=== PATIENT | female | born 1990 | race Caucasian/White ===

== ENCOUNTER 2017-04-08 06:08 | Day surgery (SDC) | payer OTHER ==
[2017-04-02 08:25] LABS: A/G RATIO 1.4 (0.7-1.9); ALBUMIN 4.2 G/DL (3.5-5.0); ALKALINE PHOSPHATASE 78 U/L (45-117); BUN (BLOOD UREA NITROGEN) 15 MG/DL (6-23); CALCIUM, SERUM 8.9 MG/DL (8.5-10.4); CHLORIDE, SERUM 106 MMOL/L (96-112); CO2 (CARBON DIOXIDE) 32 MMOL/L (24-34); CREATININE 0.98 MG/DL (0.55-1.02); GFR AFRICAN AMERICAN 92 ML/MIN (>=60); GFR NON AFRICAN AMERICAN 79 ML/MIN (>=60); POTASSIUM, SERUM 4.2 MMOL/L (3.5-5.3); SGOT(AST) 26 U/L (5-40); SGPT(ALT) 50 U/L (5-65); SODIUM, SERUM 141 MMOL/L (135-148); TOTAL BILIRUBIN 0.9 MG/DL (0-1.2); TOTAL PROTEIN 7.2 G/DL (6.0-8.5)
[2017-04-02 08:26] LABS: GLUCOSE, SERUM 106 MG/DL (60-99)
--- NOTE | ~2017-04-08 | OP ---
[facility] Of [facility] [address] [place]. [address] NAME: TERE MÉNDEZ : 88 STATUS : [facility]#: [id number] AGE: 26 ADM/REG DATE : 04/08/17 MR#: [id number] REPORT SERV DATE: 04/09/17 DICTATED BY: TWIN BERNABE DATE: 04/09/17 REPORT STATUS : Draft TRANSCRIBED BY: MODL DATE: 04/09/17 DATE OF PROCEDURE: 04/08/2017 PREOPERATIVE DIAGNOSIS: Biliary dyskinesia. POSTOPERATIVE DIAGNOSES: 1. Biliary dyskinesia. 2. Chronic cholecystitis. PROCEDURE: Laparoscopic cholecystectomy. RESIDENT: Hipolito Chen M.D. ANESTHESIA: General. ESTIMATED BLOOD LOSS: 10 mL. IV FLUIDS: Approximately 1000 mL of crystalloid. SPECIMEN: Gallbladder. DRAINS: None. COMPLICATIONS: None. FINDINGS: The patient had a gallbladder with omental adhesions and a thickened peritoneum consistent with chronic cholecystitis. INDICATIONS FOR PROCEDURE: This is a 26-year-old female with symptomatic postprandial nausea and right upper quadrant abdominal pain. The patient was worked up and was found to have a decreased ejection fraction consistent with biliary dyskinesia. The above procedure was offered to the patient. Risks, benefits, and alternatives were explained. The patient expressed clear verbal understanding and wished to proceed forward with this elective procedure. DESCRIPTION OF PROCEDURE: After informed consent was obtained, the patient was taken back to the operative theater. The patient was laid on the operating room table in the supine position. The patient was given adequate analgesia and anesthesia and then successfully endotracheally intubated. The surgery site was then prepped and draped in standard fashion. A formal time-out was then performed. Appropriate preoperative antibiotics had been administered. All present in the operating room were in agreement and we elected to proceed forward with the procedure. We began by making an umbilical incision and dissected down to the anterior abdominal fascia, which was grasped, elevated, and incised. Blunt dissection was used to gain entrance into the abdominal cavity. The origin trocar was then placed into the abdominal cavity and insufflated and secured in position. The trocar was then connected for insufflation of the pneumoperitoneum of 15 mmHg was achieved and the patient tolerated [facility] [address] [facility] [place]. [address] NAME: TERE MÉNDEZ : 88 STATUS : [facility] PAT#: [id number] AGE: 26 ADM/REG DATE : 04/08/17 MR#: [id number] REPORT SERV DATE: 04/09/17 DICTATED BY: TWIN BERNABE DATE: 04/09/17 REPORT STATUS : Draft TRANSCRIBED BY: MODL DATE: 04/09/17 this well. A laparoscope was introduced into the abdominal cavity. A quick surveillance revealed no blood and no bile. No injury to the omentum, small bowel, or mesentery. The liver appeared healthy. No nodules seen noncirrhotic. We then placed a 12 mm trocar in the epigastrium and then two 5 mm trocars in the right upper quadrant. The gallbladder was then grasped and retracted cephalic. A combination of electrocautery and blunt dissection was then used to take down omental adhesions that were appeared to be a thickened peritoneum on the gallbladder consistent with chronic cholecystitis. We then circumferentially dissected out the cystic duct and cystic artery. Once the critical view of the cyst duct and gallbladder infundibular junction was identified as well as cystic artery circumferentially dissected with the liver plate easily seen behind it, we then placed two clips on the stay side and one clip on the go side on each cystic duct and cystic artery and then sharply transected between these clips. The gallbladder was then removed from the liver bed with electrocautery and placed into an Endobag and removed from the abdominal cavity and passed off the surgical field. The gallbladder fossa was then visualized and hemostasis was noted to have been achieved. No bile leak was noted. The right upper quadrant was thoroughly irrigated out with saline solution to a clear fluid return. We then removed all trocars under direct laparoscopic vision. No bleeding noted from the anterior abdominal wall. We then removed our final trocar and laparoscope and desufflated the patient's abdomen adequately. We then used 0 Vicryl on a UR6 in a [id number] fashion, reapproximated the fascia at the umbilicus, and then placed one more simple interrupted stitch for complete closure of the fascia at the umbilicus. We then at this time reapproximated all skin incisions with 4-0 Monocryl in a simple interrupted subcuticular stitch fashion. Skin edges were reapproximated very well. Hemostasis was noted to have been achieved. Sterile dressings were then applied. Sterile drapes were then broken down. The patient reversed from anesthesia and successfully extubated in the operating room. The patient is awake. Vital signs were stable. The patient is transferred to recovery in stable condition. DICTATED BY: MD CHICO Gary/KELLY Twin Bernabe M.D. / [id number] CC: Twin Bernabe M.D. NO PCP
[~2017-04-08 06:08] MED LIST: PRILOSEC40 MG PO; RANITIDINE300 MG PO
[2017-04-09] MEDS ORDERED: MYTAB GAS125 MG PO (00:29)
[2017-04-09] MEDS ORDERED: PRILOSEC40 MG PO (00:29)
[2017-04-09] MEDS ORDERED: NORCO1 TA2 PO (00:29)
[2017-04-09] MEDS ORDERED: ZANTAC300 MG PO (00:30)
[2017-04-09] MEDS ORDERED: MIRALAX POWDER1 PKT PO (00:31)
== END 2017-04-08 16:14 | disposition home or self-care (01) ==
LOC: SDC 06:08
PROVIDERS: Specialist
PROC: 0FT44ZZ Resection of Gallbladder, Percutaneous Endoscopic Approach (ICD-10-PCS; principal; 2017-04-08 07:45)
DX: K81.1 Chronic cholecystitis (principal); K82.8 Other specified diseases of gallbladder; K21.9 Gastro-esophageal reflux disease without esophagitis; K44.9 Diaphragmatic hernia without obstruction or gangrene; M19.90 Unspecified osteoarthritis, unspecified site; F32.9 Major depressive disorder, single episode, unspecified; E66.9 Obesity, unspecified; Z68.35 Body mass index [BMI] 35.0-35.9, adult; Z79.899 Other long term (current) drug therapy; Z98.890 Other specified postprocedural states
CPT/HCPCS: 80053; 84703; 88304; A9270-GY; J0330; J0690; J1885; J2250; J2405; J2550; J2710; J3010; Q9967

== ENCOUNTER 2017-04-08 20:21 | Observation (INO) | payer OTHER ==
--- NOTE | ~2017-04-08 | OP ---
Record Of [facility] [place] [id number] [facility] [place]. [address] NAME: TERE MÉNDEZ : 88 STATUS : ADM Antony PAT#: [id number] AGE: 26 ADM/REG DATE : 04/08/17 MR#: [id number] REPORT SERV DATE: 04/10/17 DICTATED BY: TWIN BERNABE DATE: 04/09/17 REPORT STATUS : Draft TRANSCRIBED BY: MODL DATE: 04/09/17 DATE OF PROCEDURE: 04/09/2017 DICTATED BY: Hipolito Chen MD. PREOPERATIVE DIAGNOSIS: Hemoperitoneum. POSTOPERATIVE DIAGNOSIS: Hemoperitoneum. PROCEDURE: 1. Diagnostic laparoscopy. 2. Evacuation of hemoperitoneum. ATTENDING SURGEON: Twin Bernabe MD RESIDENT: Hipolito Chen MD ANESTHESIA: General. ESTIMATED BLOOD LOSS: Less than 5 mL. IV FLUID: 850 mL crystalloid. SPECIMEN: None. DRAINS: 15-Kittitian Bishop drain placed in for infrahepatically near the gallbladder fossa. COMPLICATIONS: None. FINDINGS: The patient has a large amount of hemoperitoneum. Clips were visualized on the cystic artery and were secure. There was no bleeding noted from the cystic artery. There was no active bleeding coming from any of the four trocar sites from looking intra- abdominally. The epigastric trocar site, once the stitches were opened, did have a skin bleeder that was just over the subcutaneous tissue just below the dermis. Thus actively bleeding was easily able to be controlled with electrocautery. There was a hematoma that was noted at the umbilical trocar site, is visualized intraabdominally. INDICATIONS FOR PROCEDURE: This is a 26-year-old female, who is postoperative day 1 from laparoscopic cholecystectomy. The patient represented with continuous abdominal pain that could not be managed with oral narcotics had been prescribed. Postoperatively, the patient underwent a CAT scan, it was noted the patient had hemoperitoneum, proximal volume measurement was at 250 mL. Therefore, the above procedure was offered to the patient. Risks, benefits, alternatives were explained. The patient expressed clear verbal understanding, wished to proceed forward with the procedure. DESCRIPTION OF PROCEDURE: After informed consent was obtained, the patient was taken back to Record Of [place] [id number] [facility] [place]. [address] NAME: TERE MÉNDEZ : 88 STATUS : ADM Antony PAT#: [id number] AGE: 26 ADM/REG DATE : 04/08/17 MR#: [id number] REPORT SERV DATE: 04/10/17 DICTATED BY: TWIN BERANBE DATE: 04/09/17 REPORT STATUS : Draft TRANSCRIBED BY: KELLY DATE: 04/09/17 the operative theater. The patient was laid on the operating room table in supine position. The patient was given adequate analgesia and anesthesia and then successfully endotracheally intubated. The surgery site was then prepped and draped in a standard fashion. A formal time-out was then performed. All present in the operating room were in agreement and we elected to proceed for the procedure. We began by reopening the umbilical incision bluntly dissecting down, grasped our fascia closure stitch, sharply excised it. We bluntly dissected, regain entrance into the abdominal cavity. A 12 mm origin trocar was then placed into the abdomen. Anchoring balloon was insufflated. Trocar was then connected to insufflation and pneumoperitoneum at 15 mmHg was achieved. The patient tolerated this well. Laparoscope was introduced into the abdominal cavity, revealed large amount of blood clot paraumbilically, intra-abdominally, but no active bleeding could be seen. Then there was an old blood noted upon the liver and around the right paracolic gutter. We then visualized our four more trocar sites, dropped the insufflation down to 8. There was no bleeding noted from the anterior abdominal wall or epigastric or to right upper quadrant trocar sites and inflated both up to 50 mmHg. Opened up our incision at the epigastric trocar site, went to place a 10 mm trocar. This trocar site noted that there was an active skin bleeder that was in the subcutaneous tissue deep to the dermis. This is able to be controlled with electrocautery. We then placed a 10 mm trocar through the epigastric site as well as two 5 mm trocars through our previous right upper quadrant incision sites. I then thoroughly irrigated out the abdomen and evacuated all the hemoperitoneum, all the clot was grasped and removed from the abdominal cavity as well. We thoroughly irrigated out the right upper quadrant, right pericolic gutter, and the pelvis. This was done twice with placing the patient in reverse Trendelenburg and Trendelenburg to make sure we had adequate evacuation of the abdominal cavity of any old blood or clot. We then reviewed the gallbladder fossa. The gallbladder fossa was dry. Hemostasis was achieved there. Clips could be seen in cystic artery and they were secured and in position, and there was no bleeding noted from the cystic artery. So the time we placed a 15-Kittitian Bishop drain infrahepatically in the gallbladder fossa and pulled out through the lateral most right upper quadrant trocar site and secured in position with 2-0 nylon stitch. We then removed all the other trocars under direct laparoscopic vision. Again, no bleeding noted from the anterior abdominal wall. We then removed our final trocar and desufflated the anchoring balloon over the trocar, removed it from the abdominal cavity. We then elongated her umbilical incision to get better visualization of the fascia. There was a hematoma that was between the peritoneum and the fascia. This was evacuated. Of note, prior to placing the 15-Kittitian Ibshop drain infrahepatically in gallbladder fossa, we squirted Renata. Renata was applied to the gallbladder fossa and onto the cystic artery clips as well as into both right upper quadrant trocar sites. So after elongating our incision inferiorly on the umbilical trocar site to get better exposure of our fascia, it was noted that there was hematoma between the fascia and the peritoneum at the umbilical trocar site. We evacuated this hematoma. There was no active bleeder noted in this area. Renata was applied in the space between the peritoneum and the fascia at this location. We then reapproximated the fascia with 0 Vicryl on UR-6 under simple running fashion. The fascia was reapproximated very well. Hemostasis was noted to be achieved. Thoroughly irrigated out all our trocar sites, saline solution, then reapproximated all skin incisions for the epigastric and 2 right upper quadrant with a simple interrupted subcuticular stitch fashion, reapproximated the umbilical trocar site with a simple running subcuticular stitch fashion. Skin edges were all reapproximated very well. Hemostasis was achieved. A sterile dressing was applied. Sterile drapes were then Record Of Operation [place] [id number] [facility] [place]. [address] NAME: ETRE MÉNDEZ : 88 STATUS : ADM Antony [facility]#: [id number] AGE: 26 ADM/REG DATE : 04/08/17 MR#: [id number] REPORT SERV DATE: 04/10/17 DICTATED BY: TWIN BERNABE DATE: 04/09/17 REPORT STATUS : Draft TRANSCRIBED BY: MODL DATE: 04/09/17 broken down. The patient was reversed from anesthesia and successfully extubated. The patient was awake and vital signs were stable. The patient was transferred to recovery in stable condition. ROMAN/KELLY Twin Bernabe M.D. / [id number] CC: Twin Bernabe M.D.
--- NOTE | ~2017-04-08 | HP ---
History And Physical [facility] [address] [facility] [place]. [address] NAME: TERE MÉNDEZ : 88 STATUS : ADM Antony PAT#: [id number] AGE: 26 ADM/REG DATE : 04/08/17 MR#: [id number] REPORT SERV DATE: 04/09/17 DICTATED BY: TWIN SCOTT DATE: 04/09/17 REPORT STATUS : Draft TRANSCRIBED BY: MODMelissa DATE: 04/09/17 DATE OF ADMISSION: 04/08/2017 CHIEF COMPLAINT: Abdominal pain. HISTORY OF PRESENT ILLNESS: This is a 26-year-old female, who is postoperative day 1 from laparoscopic cholecystectomy for biliary dyskinesia and signs of chronic cholecystitis as well. She now represents with intractable abdominal pain and workup performed in the ER. The labs and CT scan shows hemoperitoneum and a drop of hematocrit from 32.6 to 26.8. The patient complains diffuse abdominal soreness, worse with palpation and movement, better with lying still. She also has been having considerable amount of drainage from the epigastric trocar site. Bandage has been changed repeatedly. The patient denies any fever, chills, nausea, or vomiting. She denies any lightheadedness, dizziness, or blurry vision. No new paresthesias. Denies any shortness of breath or chest pain. REVIEW OF SYSTEMS: 12-systems reviewed and negative except as mentioned in HPI. ALLERGIES: NO KNOWN DRUG ALLERGIES. PAST MEDICAL HISTORY: Morbid obesity, GERD, and biliary dyskinesia. PAST SURGICAL HISTORY: Postoperative day 1 from a laparoscopic cholecystectomy. SOCIAL HISTORY: No tobacco, alcohol, or drugs. Lives in [place], [place] with her family. FAMILY HISTORY: Her paternal grandfather and grandmother had lung cancer and her paternal aunt had colon cancer. MEDICATIONS: Omeprazole and ranitidine. PHYSICAL EXAMINATION: VITAL SIGNS: Temperature 98.5, blood pressure 103/55, pulse 74, respiratory rate 20, and O2 sats 96% on room. GENERAL: Well developed, well nourished, no acute distress, white female, morbid obesity, who is sleeping. HEENT: Normocephalic and atraumatic. PERRLA. EOMI. Mucous membranes are moist. NECK: No lymphadenopathy. Trachea midline. CARDIOVASCULAR: Regular rate and rhythm. LUNGS: Clear to auscultation. ABDOMEN: Soft and nondistended. Appropriately tender to palpation. No rebound. No guarding. No peritonitis. Incision sites, the epigastric incision has a continuous sanguinous slow drainage. The umbilical dressing was removed and had some old blood, which was cleaned out. This incision as well has a slow continuous sanguinous drainage but less compared to the epigastric site. The two right upper quadrant trocar sites skin is History And Physical [address] [address] NAME: TERE MÉNDEZ : 88 STATUS : ADM Antony PAT#: [id number] AGE: 26 ADM/REG DATE : 04/08/17 MR#: [id number] REPORT SERV DATE: 04/09/17 DICTATED BY: TWIN SCOTT DATE: 04/09/17 REPORT STATUS : Draft TRANSCRIBED BY: KELLY DATE: 04/09/17 reapproximated very well. Hemostasis achieved, and dry. EXTREMITIES: No clubbing, cyanosis, edema. 2+ pulses. MUSCULOSKELETAL: Moves all extremities well. NEUROLOGIC: Cranial 2 through 12 are intact. AO x3. LABS: White blood cell count 9.8, hematocrit 26.8, which is down from 32.6, platelets of 314. Urinalysis is contaminated as evidenced by the epithelials being 105. test is negative. Sodium 137, potassium 4.2, chloride 104, bicarb 27, BUN 15, creatinine 1.19, glucose 136, calcium 9.0, albumin 4.4. ALT 121, AST 97, lipase 81. T bilirubin is 0.7. CT scan shows hemoperitoneum approximately 250 mL of volume by estimate. ASSESSMENT AND PLAN: This is a 26-year-old female with abdominal pain and hemoperitoneum. The patient is currently afebrile. Vital signs stable. But secondary to the patient's complaints of abdominal pain requiring IV narcotics and the volume of hemoperitoneum, we will take the patient back to the operating room for diagnostic laparoscopy with washout and control the source of bleeding. DICTATED BY: MD CHICO Gary/KELLY Twin Scott M.D. / [id number] CC: Twin Scott M.D.
[2017-04-08 21:03] LABS: BASOPHILS 0.1 %; BASOPHILS ABSOLUTE 0.01 10/3/uL (0.0-0.16); EOSINOPHILS 0 %; HEMATOCRIT 32.6 % (36.0-48.0); HEMOGLOBIN 11.1 g/dL (12.0-16.0); IMMATURE GRANULOCYTES 0.3 %; IMMATURE GRANULOCYTES ABSOLUTE 0.06 10/3/uL (0.0-0.11); LYMPHOCYTES 6.5 %; LYMPHOCYTES ABSOLUTE 1.25 10/3/uL (0.67-4.30); MEAN CORPUSCULAR HEMOGLOB 28.8 pg (26.0-34.0); MEAN CORPUSCULAR VOLUME 84.7 fL (80-100); MEAN PLATELET VOLUME 10.3 fL (9.2-13.0); MONOCYTES 6.2 %; NEUTROPHILS 86.9 %; NEUTROPHILS ABSOLUTE 16.71 10/3/uL (2.02-8.40); RED CELL COUNT 3.85 10/6/uL (4.0-5.6)
[2017-04-08 21:04] LABS: ER CBC TAT 0 Hrs 08 Mins; MANUAL DIFF NO %; PLATELET COUNT 469 10/3/uL (150-400); WHITE BLOOD CELLS 19.2 10/3/uL (4.5-10.5)
[2017-04-08 21:36] LABS: A/G RATIO 1.3 (0.7-1.9); ALBUMIN 4.4 G/DL (3.5-5.0); ALKALINE PHOSPHATASE 79 U/L (45-117); BUN (BLOOD UREA NITROGEN) 15 MG/DL (6-23); CHLORIDE, SERUM 104 MMOL/L (96-112); CREATININE 1.19 MG/DL (0.55-1.02); GFR AFRICAN AMERICAN 72 ML/MIN (>=60); GFR NON AFRICAN AMERICAN 63 ML/MIN (>=60); GLOBULIN 3.4 G/DL (2.5-4.1); POTASSIUM, SERUM 4.2 MMOL/L (3.5-5.3); SGOT(AST) 97 U/L (5-40); SGPT(ALT) 121 U/L (5-65); SODIUM, SERUM 137 MMOL/L (135-148); TOTAL BILIRUBIN 0.7 MG/DL (0-1.2); TOTAL PROTEIN 7.8 G/DL (6.0-8.5)
[2017-04-08 21:37] LABS: CO2 (CARBON DIOXIDE) 27 MMOL/L (24-34); GLUCOSE, SERUM 136 MG/DL (60-99)
[2017-04-08 22:00] LABS: ASCORBIC ACID (UR NOT ORDER) NEG (NEG); BILIRUBIN, URINE NEGATIVE (NEG); ER URINALYSIS TAT 0 Hrs 12 Mins; KETONE, URINE NEGATIVE (NEG); LEUKOCYTE ESTERASE(NOT OR LARGE (NEG); NITRITE (URINE) NEG (NEG); WBC (NOT ORDERED) (RFLEX) 84 (0-5)
[2017-04-09] MEDS ORDERED: PRILOSEC40 MG PO (00:29)
[2017-04-09] MEDS ORDERED: MYTAB GAS125 MG PO (00:29)
[2017-04-09] MEDS ORDERED: NORCO1 TA2 PO (00:29)
[2017-04-09] MEDS ORDERED: ZANTAC300 MG PO (00:30)
[2017-04-09] MEDS ORDERED: MIRALAX POWDER1 PKT PO (00:31)
[2017-04-09 04:52] LABS: BASOPHILS 0.1 %; BASOPHILS ABSOLUTE 0.01 10/3/uL (0.0-0.16); EOSINOPHILS 0 %; IMMATURE GRANULOCYTES 0.3 %; IMMATURE GRANULOCYTES ABSOLUTE 0.03 10/3/uL (0.0-0.11); LYMPHOCYTES 14.9 %; LYMPHOCYTES ABSOLUTE 1.45 10/3/uL (0.67-4.30); MEAN CORPUS HGB CONC 33.6 g/dL (32.0-36.0); MEAN CORPUSCULAR HEMOGLOB 28.8 pg (26.0-34.0); MEAN CORPUSCULAR VOLUME 85.6 fL (80-100); MEAN PLATELET VOLUME 10.3 fL (9.2-13.0); MONOCYTES 9.8 %; MONOCYTES ABSOLUTE 0.96 10/3/uL (0.21-1.20); NEUTROPHILS 74.9 %; RBC DISTRIBUTION WIDTH 12.9 % (12.0-16.0); RED CELL COUNT 3.13 10/6/uL (4.0-5.6)
[2017-04-09 04:55] LABS: HEMATOCRIT 26.8 % (36.0-48.0); MANUAL DIFF NO %; PLATELET COUNT 314 10/3/uL (150-400); WHITE BLOOD CELLS 9.8 10/3/uL (4.5-10.5)
[2017-04-09 11:07] LABS: INTERNATIONAL NORMAL RATI 1.1 UNITS (-); PARTIAL THROMBO TIME 26.8 SEC (22.5-37.2); PROTIME (NOT ORD) 14.5 SEC (12.0-14.5)
[2017-04-10 05:58] LABS: HEMATOCRIT 26.9 % (36.0-48.0); HEMOGLOBIN 8.8 g/dL (12.0-16.0)
[2017-04-10 06:16] LABS: CALCIUM, SERUM 8.3 MG/DL (8.5-10.4); CHLORIDE, SERUM 105 MMOL/L (96-112); CREATININE 0.98 MG/DL (0.55-1.02); GFR AFRICAN AMERICAN 92 ML/MIN (>=60); GFR NON AFRICAN AMERICAN 79 ML/MIN (>=60); POTASSIUM, SERUM 3.5 MMOL/L (3.5-5.3); SODIUM, SERUM 142 MMOL/L (135-148)
[2017-04-10 06:17] LABS: BUN (BLOOD UREA NITROGEN) 8 MG/DL (6-23); CO2 (CARBON DIOXIDE) 32 MMOL/L (24-34); GLUCOSE, SERUM 104 MG/DL (60-99)
== END 2017-04-10 13:49 | disposition home or self-care (01) ==
LOC: ER 20:21 → 4SO 21:21
PROVIDERS: Emergency Medicine; Specialist
PROC: 0FT44ZZ Resection of Gallbladder, Percutaneous Endoscopic Approach (ICD-10-PCS; 2017-04-08)
PROC: 0WJG4ZZ Inspection of Peritoneal Cavity, Percutaneous Endoscopic Approach (ICD-10-PCS; 2017-04-09)
PROC: 0WJP4ZZ Inspection of Gastrointestinal Tract, Percutaneous Endoscopic Approach (ICD-10-PCS; principal; 2017-04-09 08:15)
DX: K66.1 Hemoperitoneum (principal); K21.9 Gastro-esophageal reflux disease without esophagitis; E66.01 Morbid (severe) obesity due to excess calories; K82.8 Other specified diseases of gallbladder; M19.90 Unspecified osteoarthritis, unspecified site; F32.9 Major depressive disorder, single episode, unspecified; K44.9 Diaphragmatic hernia without obstruction or gangrene; Z90.49 Acquired absence of other specified parts of digestive tract
CPT/HCPCS: 36415; 74177; 80048; 80053; 81001; 83690; 84703; 85014; 85018; 85025; 85049; 85610; 85730; 86850; 86900; 86901; 87086; 88304; 96374; 96375; 96376; 99285; A9270-GY; G0378; J0330; J0690; J1170; J1885; J2250; J2270; J2405; J2550; J2710; J3010; Q9967

== ENCOUNTER 2017-04-14 13:10 | Inpatient (IN) | payer OTHER ==
--- NOTE | ~2017-04-14 | HP ---
History And Physical [place] [id number] [facility] [place]. [address] NAME: TERE MÉNDEZ : 88 STATUS : ADM IN [facility]#: [id number] AGE: 26 ADM/REG DATE : 04/14/17 MR#: [id number] REPORT SERV DATE: 04/14/17 DICTATED BY: TWIN SCOTT DATE: 04/14/17 REPORT STATUS : Draft TRANSCRIBED BY: MODMelissa DATE: 04/14/17 DATE OF ADMISSION: 04/14/2017 CHIEF COMPLAINT: Fever, chills, nausea. HISTORY OF PRESENT ILLNESS: This is a 26-year-old female, who on 04/08/2017, had a laparoscopic cholecystectomy, subsequently was readmitted and diagnostic laparoscopy was performed on the following day for hemoperitoneum and was found to have bleeding most probably from the umbilical trocar site. See op notes for full details. The patient was discharged to home. The patient had re-presented to the office with nonspecific symptoms of fever, chills, nausea, early satiety, orthopnea, and generalized aches and pains of the bilateral upper extremities and lower extremities. The patient denies any sick contacts. Denies any travel. The patient does state that she is tolerating oral intake. She is having normal bowel movements and has pain with no specific dysuria, but does have suprapubic pain with voiding. REVIEW OF SYSTEMS: 12-systems reviewed and negative except as mentioned in the HPI. ALLERGIES: NO KNOWN DRUG ALLERGIES. PAST MEDICAL HISTORY: Morbid obesity, GERD, and biliary dyskinesia. PAST SURGICAL HISTORY: Laparoscopic cholecystectomy and diagnostic laparoscopy with hemoperitoneum evacuation. SOCIAL HISTORY: No tobacco, alcohol, or drugs. Lives in [place], [place] with her family. FAMILY HISTORY: Paternal grandfather and grandmother with lung cancer. Paternal aunt with colon cancer. MEDICATIONS: Omeprazole, ranitidine. PHYSICAL EXAMINATION: VITAL SIGNS: Blood pressure 125/57, pulse 68, oxygen 98% on room air, respiratory rate 22, temperature 98.0. GENERAL: This is a well-developed, well-nourished, no acute distress female. HEENT: Normocephalic, atraumatic. PERRLA, EOMI. Mucous membranes are moist. Sclerae nonicteric. NECK: No lymphadenopathy. Trachea midline. CARDIOVASCULAR: Regular rate and rhythm. LUNGS: Clear to auscultation bilaterally. ABDOMEN: Soft, nondistended, tender to palpation in the right upper quadrant, mostly near the drain. The patient had a Bishop drain present, active bulb suction. Fluid in the line appears to be serous, but in the bulb appears to be serosanguineous, slightly ecchymotic History And Physical [address] [address] NAME: TERE MÉNDEZ : 88 STATUS : ADM IN [facility]#: [id number] AGE: 26 ADM/REG DATE : 04/14/17 MR#: [id number] REPORT SERV DATE: 04/14/17 DICTATED BY: TWIN SCOTT DATE: 04/14/17 REPORT STATUS : Draft TRANSCRIBED BY: KELLY DATE: 04/14/17 periumbilically as well as epigastric. Incision sites healed well. No rebound or guarding. No peritonitis noted. EXTREMITIES: No clubbing, cyanosis, edema. 2+ pulses. MUSCULOSKELETAL: Moves all extremities well. NEURO: Cranial nerves 2 through 12 are intact. A and O x3. LABORATORY DATA: Labs are pending. CT scan pending. ASSESSMENT AND PLAN: This is a 26-year-old female, who is status post laparoscopic cholecystectomy and diagnostic lap with hemoperitoneum evacuation, who presents with nonspecific symptoms. The patient will be admitted, started on some IV antibiotics. We will obtain labs such as CBC, CMP, amylase, lipase, urinalysis. A CAT scan also be obtained to evaluate for any abscess. DICTATED BY: MD CHICO Gary/KELLY Twin Scott M.D. / [id number] CC: Twin Scott M.D.
[~2017-04-14 13:10] MED LIST changes: +MIRALAX POWDER1 PKT PO; +MYTAB GAS125 MG PO; +NORCO1 TA2 PO; +ZANTAC300 MG PO
[2017-04-14 14:30] LABS: BASOPHILS 0.1 %; BASOPHILS ABSOLUTE 0.01 10/3/uL (0.0-0.16); EOSINOPHILS 1.3 %; EOSINOPHILS ABSOLUTE 0.12 10/3/uL (0.0-0.53); HEMATOCRIT 29.8 % (36.0-48.0); HEMOGLOBIN 9.8 g/dL (12.0-16.0); IMMATURE GRANULOCYTES 0.6 %; IMMATURE GRANULOCYTES ABSOLUTE 0.05 10/3/uL (0.0-0.11); LYMPHOCYTES ABSOLUTE 1.71 10/3/uL (0.67-4.30); MANUAL DIFF NO %; MEAN CORPUS HGB CONC 32.9 g/dL (32.0-36.0); MEAN CORPUSCULAR HEMOGLOB 28.4 pg (26.0-34.0); MEAN CORPUSCULAR VOLUME 86.4 fL (80-100); MEAN PLATELET VOLUME 9.9 fL (9.2-13.0); MONOCYTES 6.8 %; MONOCYTES ABSOLUTE 0.61 10/3/uL (0.21-1.20); NEUTROPHILS 72.2 %; NEUTROPHILS ABSOLUTE 6.52 10/3/uL (2.02-8.40); PLATELET COUNT 381 10/3/uL (150-400); RBC DISTRIBUTION WIDTH 12.9 % (12.0-16.0); RED CELL COUNT 3.45 10/6/uL (4.0-5.6)
[2017-04-14 14:45] LABS: ALBUMIN 3.9 G/DL (3.5-5.0); ALKALINE PHOSPHATASE 97 U/L (45-117); BUN (BLOOD UREA NITROGEN) 8 MG/DL (6-23); CALCIUM, SERUM 9.2 MG/DL (8.5-10.4); CHLORIDE, SERUM 102 MMOL/L (96-112); CO2 (CARBON DIOXIDE) 31 MMOL/L (24-34); CREATININE 0.91 MG/DL (0.55-1.02); GFR AFRICAN AMERICAN 100 ML/MIN (>=60); GFR NON AFRICAN AMERICAN 86 ML/MIN (>=60); GLOBULIN 3.8 G/DL (2.5-4.1); GLUCOSE, SERUM 157 MG/DL (60-99); POTASSIUM, SERUM 3.5 MMOL/L (3.5-5.3); SGOT(AST) 22 U/L (5-40); SGPT(ALT) 58 U/L (5-65); SODIUM, SERUM 139 MMOL/L (135-148); TOTAL BILIRUBIN 1.1 MG/DL (0-1.2); TOTAL PROTEIN 7.7 G/DL (6.0-8.5)
[2017-04-14 15:51] LABS: WBC (NOT ORDERED) (RFLEX) 0 (0-5)
[2017-04-14 16:11] LABS: ASCORBIC ACID (UR NOT ORDER) NEG (NEG); BILIRUBIN, URINE NEGATIVE (NEG); KETONE, URINE NEGATIVE (NEG); LEUKOCYTE ESTERASE(NOT OR NEG (NEG)
== END 2017-04-16 11:21 | disposition home or self-care (01) | DRG 864 ==
LOC: CDU1 13:10
PROVIDERS: Specialist
DX: R50.9 Fever, unspecified (principal); E66.01 Morbid (severe) obesity due to excess calories; Z90.49 Acquired absence of other specified parts of digestive tract; K21.9 Gastro-esophageal reflux disease without esophagitis; Z68.34 Body mass index [BMI] 34.0-34.9, adult
CPT/HCPCS: 71010; 74177; 80053; 81001; 82150; 83690; 85025; A9270-GY; C9113; J1170; J1956; J2550; Q9967